=== PATIENT | female | born 1980 | race Caucasian/White ===

== ENCOUNTER 2017-03-10 10:51 | Day surgery (SDC) | payer OTHER ==
[~2017-03-10 10:51] MED LIST: HYDROmorphone 2 MG/ML VIAL IV; LIDOCAINE 1% PF 2 ML VIAL. ID; MORPHINE SULFATE 2 MG/ML DISP.SYRIN. IV; ONDANSETRON PF 4 MG/2 ML VIAL. IV; PROCHLORPERAZINE 10 MG/2 ML VIAL. IV; fentaNYL PF VIAL 100 MCG/2 ML VIAL IV
[2017-03-10] MEDS: IV RINGERS,LACTATED 1000ML 1,000 ML IV (11:34)
[2017-03-10 11:42] LABS: U PREG PATIENT NEGATIVE (NEG)
[2017-03-10 11:43] LABS: NEG OBC UR NEG; POS OBC UR POS
[2017-03-10 11:45] LABS: HEMATOCRIT 39.8 % (36.0-47.0); HEMOGLOBIN 13.6 g/dL (12.0-15.5); MEAN CORPUSCULAR HGB CONC 34 g/dL (31-37)
[2017-03-10] MEDS ORDERED: MIDAZOLAM HCL/PF 2 MG/2 ML VIAL. (13:18)
[2017-03-10] MEDS ORDERED: PROPOFOL 20 ML IV (13:18)
[2017-03-10] MEDS ORDERED: fentaNYL PF VIAL 100 MCG/2 ML VIAL (13:18)
[2017-03-10] MEDS: LIDOCAINE 1% PF 30 ML VIAL. (13:56)
[2017-03-10] MEDS: BUPIVACAINE MPF 0.5% 30 ML VIAL. (13:56)
[2017-03-10] MEDS ORDERED: DEXAMETHASONE SOD PHOS 20 MG/5 ML VIAL. (14:07)
[2017-03-10] MEDS ORDERED: ONDANSETRON PF 4 MG/2 ML VIAL. (14:07)
[2017-03-10] MEDS ORDERED: SEVOFLURANE 31 TO 60 MINUTES. IH (14:08)
[2017-03-10] MEDS: POVIDONE-IODINE 10% TOPICAL OINTMENT 28GM TUBE. TP (14:28)
[2017-03-10] MEDS: DEXAMETHASONE SOD PHOS 4 MG/ML VIAL (14:36)
[2017-03-10] MEDS: fentaNYL PF VIAL 100 MCG/2 ML VIAL IV ×4 (14:55→15:19)
[2017-03-10] MEDS: HYDROcodone/APAP 5/325MG 1 TAB TABLET PO (15:12)
== END 2017-03-10 16:20 | disposition home or self-care (01) ==
LOC: SURG 10:51
DX: M67.472 Ganglion, left ankle and foot (principal); E66.9 Obesity, unspecified; Z87.39 Personal history of other diseases of the musculoskeletal system and connective tissue; Z72.89 Other problems related to lifestyle; Z87.891 Personal history of nicotine dependence
CPT/HCPCS: 28090; 36415; 81025; 85014; 85018; 88304; C1769; J0690; J1100; J2250; J2405; J2704; J3010; J3490